=== PATIENT | female | born 1990 | race Caucasian/White ===

== ENCOUNTER 2023-04-14 08:46 | Outpatient (OUT) | payer BC, SELFPAY ==
[2023-04-14] MEDS: FLU VACC QS 23-24(6MS UP)CEL/PF 60 MCG/0.5 ML SYRINGE IM (13:28)
== END 2023-04-14 08:47 | disposition home or self-care (01) ==
PROVIDERS: PCP Family Medicine
DX: Z23 Encounter for immunization (principal)
CPT/HCPCS: 90674; G0008

== ENCOUNTER 2023-08-31 06:39 | Outpatient (OUT) | payer BC, SELFPAY ==
--- OUTSIDE RECORDS SUMMARY | 2023-08-31 06:42 | XMS_ITS | CCD ---
Author Name Unknown Address Formerly [facility] [address] [place] [id number] Organization [facility] Care Team Providers Care Rod Buster Name Role Phone KALEE ., DR PANCHITO Wong Admitting Unavailable KALEE ., DR PANCHITO Wong Attending Unavailable KALEE ., DR PANCHITO Wong Consulting Unavailable Randee Castano MD Primary Care Provider [phone] RANDEE CASTANO Attending Unavailable Allergies Allergy Classification Reported Allergen(s) Allergy Type Date of Onset Reaction(s) Facility (1 source) diazePAM Drug Allergy 1 [facility] Repository (3 sources) Diazepam Propensity to adverse reactions 4 [facility] (3 sources) Penicillins Propensity to adverse reactions 4 [facility] (3 sources) Amoxicillin-Pot Clavulanate Propensity to adverse reactions 4 [facility] Medications Current Medications Medication Drug Class(es) Dates Sig (Normalized) Sig (Original) 1 ml medroxyPROGESTERone acetate 150 mg/ml prefilled syringe (3 sources) Progestin Start: 08-07-19 medroxyPROGESTERone (Depo-Provera) 150 MG/ML suspension prefilled syringe injection syringe Indications: Irregular menstrual bleeding Inject 1 mL (150 mg) into the shoulder, thigh, or buttocks 1 (one) time for 1 dose 1 mL 0 08/07/2023 Active QUEtiapine 100 mg oral tablet (3 sources) Atypical Antipsychotic QUEtiapine (SEROquel ) 100 MG tablet Take 100 mg by mouth if needed 0 Active sertraline 50 mg oral tablet (3 sources) Serotonin Reuptake Inhibitor sertraline (Zoloft) 50 MG tablet Take 75 mg by mouth in the morning. 0 Active take 1 tablet by mouth in the mo rning sertraline (Zoloft) 50 MG tablet Take 50 mg by mouth in the morning. 0 Active Problems Problem Classification Problem Date Documented Da te Episodic/Chronic Disorders usually diagnosed in infancy, childhood, or adolescence (3 sources) Autism spectrum disorder; Translations: [Autistic disorder] Onset: 08-28-2023 08-28-2023 Chronic Results Test Name Value Interpretation Reference Range Facil ity Immunization Recordson 04-25 Immunization Records [id number]#[id number] Normal [facility] Lab Reportson 10-03-2022 Lab Reports [id number] #[id number]:127 Normal [facility] CBC AUTO DIFFon 10-02-2022 BASO # 0.1 103/ul Normal 0.0-0.1 [facility] Comment on above: Performed By: #### C BC #### [facility] [address] [place] [address] Dr. Liz Jackman Basophils/100 WBC (Bld) 1.1 % Normal 0.2-2.0 [facility] Comment on above: Performed By: #### C BC #### [facility] [address] [address] [address] Liz Jackman EO # 0.1 103/ul Normal 0.0-0.7 [facility] Comment on above: Performed By: #### C BC #### [facility] [address] [address] [address] Liz Jackman Eosinophils/100 WBC (Bld) 1.6 % Normal 0.9-7.0 [facility] Comment on above: Performed By: #### C BC #### [facility] [address] [address] [address] Liz Jackman Erythrocyte distribution width (RBC) [Ratio] 13.3 % Normal 11.0-15.0 [facility] Comment on above: Performed By: #### C BC #### [facility] [address] [address] [address] Liz Jackman Hematocrit (Bld) [Volume fraction] 41.0 % Normal 36.0-48.0 [facility] Comment on above: Performed By: #### C BC #### [facility] [address] [place] [address] Dr. Liz Jackman Hemoglobin (Bld) [Mass/Vol] 13.2 g/dL Normal 12.0-16.0 [facility] Comment on above: Performed By: #### C BC #### [facility] [address] [place] [address] Dr. Liz Jackman IG # 0.02 10e3/ul Normal 0.00-0.03 [facility] Comment on above: Performed By: #### C BC #### [facility] [address] [place] [address] Dr. Liz Jackman IG % 0.2 % Normal 0.0-0.5 [facility] Comment on above: Performed By: #### C BC #### [facility] [address] [place] [address] Dr. Liz Jackman LYMPH # 3.8 103/ul Normal 1.2-3.8 [facility] Comment on above: Performed By: #### C BC #### [facility] [address] [place] [address] Dr. Liz Jackman Lymphocytes/100 WBC (Bld) 47.0 % Normal 20.5-60.0 [facility] Comment on above: Performed By: #### C BC #### [facility] [address] [place] [address] Dr. Liz Jackman MANUAL DIFF REQ NO Normal [facility] Comment on above: Performed By: #### C BC #### [facility] [address] [place] [address] Dr. Liz Jackman MCH (RBC) [Entitic mass] 27.3 pg Normal 26.7-34.0 [facility] Comment on above: Performed By: #### C BC #### [facility] [address] [place] [address] Dr. Liz Jackman MCHC (RBC) [Mass/Vol] 32.2 g/dL Normal 29.9-35.2 [facility] Comment on above: Performed By: #### C BC #### [facility] [address] [address] [address] Liz Jackman MCV (RBC) [Entitic vol] 84.9 fL Normal 81.0-99.0 [facility] Comment on above: Performed By: #### C BC #### [facility] [address] [address] [address] Liz Jackman MONO # 0.5 103/ul Normal 0.3-0.8 [facility] Comment on above: Performed By: #### C BC #### [facility] [address] [place] [address] Dr. Liz Jackamn Monocytes/100 WBC (Bld) 6.6 % Normal 1.7-12.0 [facility] Comment on above: Performed By: #### C BC #### [facility] [address] [place] [address] Dr. Liz Jackman NEUT # 3.5 103/ul Normal 1.4-6.5 [facility] Comment on above: Performed By: #### C BC #### [facility] [address] [place] [address] Dr. Liz Jackman Neutrophils/100 WBC (Bld) 43.5 % Normal 43.0-75.0 [facility] Comment on above: Performed By: #### C BC #### [facility] [address] [place] [address] Dr. Liz Jackman Platelet mean volume (Bld) [Entitic vol] 10.8 fL Normal 9.5-13.5 [facility] Comment on above: Performed By: #### C BC #### [facility] [address] [place] [address] Dr. Liz Jackman PLT 276 103/ul Normal 150-450 [facility] Comment on above: Performed By: #### C BC #### [facility] [address] [place] [address] Dr. Liz Jackman RBC 4.83 106/ul Normal 4.20-5.40 [facility] Comment on above: Performed By: #### C BC #### [facility] [address] [place] [address] Dr. Liz Jackman WBC 8.1 103/ul Normal 4.0-11.0 [facility] Comment on above: Performed By: #### C BC #### [facility] [address] [address] [address] Liz Jackman GLYCOHEMOGLOBIN A1Con 2022 ADA RECOMMENDATION SEE BELOW Normal [facility] Comment on above: Result Comment: ADA RECOMMENDED LIMIT 4.0 - 6.0 ADA THERAPEUTIC TARGET < 7.0 ACTION SUGGESTED > 7.0 Performed By: #### A 1C #### [facility] [address] [place] [address] Dr. Liz Jackman Glucose [Mass/Vol] 97 mg/dL Normal [facility] Comment on above: Performed By: #### A 1C #### [facility] [address] [place] [address] Dr. Liz Jackman HbA1c (Bld) [Mass fraction] 5.0 % Normal 4.5-6.2 [facility] Comment on above: Performed By: #### A 1C #### [facility] [address] [place] [address] Dr. Liz Jackman LIPID PROFILEon 10-02-2022 CHOL-HDL RATIO NORM SEE BELOW Normal [facility] Comment on above: Result Comment: 3.3 - 4.4 LOW RISK 4.4 - 7.1 AVERAGE RISK 7.1 - 11.0 MODERATE RISK >11.0 HIGH RISK Performed By: #### C MP, TSH, LIPID #### [facility] [address] [place] [address] Dr. Liz Jackman Cholesterol [Mass/Vol] 173 mg/dL Normal <=200 [facility] Comment on above: Performed By: #### C MP, TSH, LIPID #### [facility] [address] [place] [address] Dr. Liz Jackman Cholesterol in HDL [Mass/Vol] 43 mg/dL Normal 40-60 [facility] Comment on above: Performed By: #### C MP, TSH, LIPID #### [facility] [address] [place] [address] Dr. Liz Jackman Cholesterol in LDL [Mass/Vol] 96.2 mg/dL Normal [facility] Comment on above: Performed By: #### C MP, TSH, LIPID #### [facility] [address] [address] [address] Liz Jackman Cholesterol.total/Cho lesterol in HDL [Mass ratio] 4.0 {ratio} Normal [facility] Comment on above: Performed By: #### C MP, TSH, LIPID #### [facility] [address] [address] [address] Liz Jackman HDL NORMAL > or = 60 mg/dl - LOW CARDIOVASCULAR RISK <40 mg/dl - HIGH CARDIOVASCULAR RISK Normal [facility] Comment on above: Performed By: #### C MP, TSH, LIPID #### [facility] [address] [place] [address] Dr. Liz Jackman LDL CALC NORMAL SEE BELOW Normal [facility] Comment on above: Result Comment: <100 mg/dl OPTIMAL 100 - 129 mg/dl NEAR OR ABOVE OPTIMAL 130 - 159 mg/dl BORDERLINE HIGH 160 - 189 mg/dl HIGH >190 mg/dl VERY HIGH Performed By: #### C MP, TSH, LIPID #### [facility] [address] [address] [address] Liz Jackman Triglyceride [Mass/Vol] 169 mg/dL Critically high <=150 [facility] Comment on above: Performed By: #### C MP, TSH, LIPID #### [facility] [address] [address] [address] Liz Jackman VLDL CALC 33.8 mg/dL Normal [facility] Comment on above: Performed By: #### C MP, TSH, LIPID #### [facility] [address] [place] [address] Dr. Liz Jackman PROF 14(COMP METB)on 023 Albumin [Mass/Vol] 3.7 g/dL Normal 3.4-5.0 [facility] Comment on above: Performed By: #### C MP, TSH, LIPID #### [facility] [address] [address] [address] Liz Jackman Albumin/Globulin [Mass ratio] 1.1 {ratio} Normal [facility] Comment on above: Performed By: #### C MP, TSH, LIPID #### [facility] [address] [place] [address] Dr. Liz Jackman ALP [Catalytic activity/Vol] 123 U/L Critically high 46-116 [facility] Comment on above: Performed By: #### C MP, TSH, LIPID #### [facility] [address] [place] [address] Dr. Liz Jackman ALT [Catalytic activity/Vol] 22 U/L Normal 14-59 [facility] Comment on above: Performed By: #### C MP, TSH, LIPID #### [facility] [address] [place] [address] Dr. Liz Jackman Anion gap [Moles/Vol] 15.5 mmol/L Normal [facility] Comment on above: Performed By: #### C MP, TSH, LIPID #### [facility] [address] [place] [address] Dr. Liz Jackman AST [Catalytic activity/Vol] 18 U/L Normal 15-37 [facility] Comment on above: Performed By: #### C MP, TSH, LIPID #### [facility] [address] [place] [address] Dr. Liz Jackman Bilirubin [Mass/Vol] 0.4 mg/dL Normal 0.2-1.0 [facility] Comment on above: Performed By: #### C MP, TSH, LIPID #### [facility] [address] [place] [address] Dr. Liz Jackman Calcium [Mass/Vol] 9.0 mg/dL Normal 8.5-10.1 [facility] Comment on above: Performed By: #### C MP, TSH, LIPID #### [facility] [address] [place] [address] Dr. Liz Jackman Chloride [Moles/Vol] 104 mmol/L Normal 98-107 [facility] Comment on above: Performed By: #### C MP, TSH, LIPID #### [facility] [address] [place] [address] Dr. Liz Jackman CO2 [Moles/Vol] 23.8 mmol/L Normal 21.0-32.0 [facility] Comment on above: Performed By: #### C MP, TSH, LIPID #### [facility] [address] [address] [address] Liz Jackman Creatinine [Mass/Vol] 0.74 mg/dL Normal 0.55-1.02 [facility] Comment on above: Performed By: #### C MP, TSH, LIPID #### [facility] [address] [address] [address] Liz Jackman EGFR-AF NAURUAN >60 Normal >=60 [facility] Comment on above: Performed By: #### C MP, TSH, LIPID #### [facility] [address] [address] [address] Liz Jackman EGFR-NON AF NAURUAN >60 Normal >=60 [facility] Comment on above: Performed By: #### C MP, TSH, LIPID #### [facility] [address] [address] [address] Liz Jackman Globulin (S) [Mass/Vol] 3.4 g/dL Normal [facility] Comment on above: Performed By: #### C MP, TSH, LIPID #### [facility] [address] [address] [address] Liz Jackman Glucose [Mass/Vol] 92 mg/dL Normal 74-106 [facility] Comment on above: Performed By: #### C MP, TSH, LIPID #### [facility] [address] [address] [address] Liz Jackman Potassium [Moles/Vol] 3.3 mmol/L Critically low 3.5-5.1 [facility] Comment on above: Performed By: #### C MP, TSH, LIPID #### [facility] [address] [address] [address] Liz Jackman Protein [Mass/Vol] 7.1 g/dL Normal 6.4-8.2 [facility] Comment on above: Performed By: #### C MP, TSH, LIPID #### [facility] [address] [address] [address] Liz Jackman Sodium [Moles/Vol] 140 mmol/L Normal 136-145 [facility] Comment on above: Performed By: #### C MP, TSH, LIPID #### [facility] [address] [place] [address] Dr. Liz Jackman Urea nitrogen [Mass/Vol] 7.0 mg/dL Normal 7.0-18.0 [facility] Comment on above: Performed By: #### C MP, TSH, LIPID #### [facility] [address] [address] [address] Liz Jackman Urea nitrogen/Creatinine [Mass ratio] 9.5 mg/mg Normal [facility] Comment on above: Performed By: #### C MP, TSH, LIPID #### [facility] [address] [place] [address] Dr. Liz Jackman TSHon 10-02-2022 TSH 1.767 uIU/mL Normal 0.358-3.740 [facility] Comment on above: Performed By: #### C MP, TSH, LIPID #### [facility] [address] [place] [address] Dr. Liz Jackman Vital Signs Date Time Vital Sign Value Performing Clinician Marlon [email or web address] 08-28-2023 13:52-0500 Body height 165.1 cm Randee Castano MD Work Phone: [facility] 08-28-2023 13:52-0500 Body mass index (BMI) [Ratio] 42.1 kg/m2 Randee Castano MD Work Phone: [facility] 08-28-2023 13:52-0500 Body temperature 97.11 [degF] Randee Castano MD Work Phone: [facility] 08-28-2023 13:52-0500 Body weight 114.76 kg Randee Castano MD Work Phone: [facility] 08-28-2023 13:52-0500 Diastolic blood pressure 70 mm[Hg] Randee Castano MD Work Phone: [facility] 08-28-2023 13:52-0500 Heart rate 105 /min Randee Castano MD Work Phone: [facility] 08-28-2023 13:52-0500 SaO2% (BldA) [Mass fraction] 98 % Randee Castano MD Work Phone: [facility] 08-28-2023 13:52-0500 Systolic blood pressure 122 mm[Hg] Randee Castano MD Work Phone: [facility] Encounters Encounter Date Encounter Type Care Provider Facility Start: 08-28-2023 End: 08-28-2023 ambulatory RANDEE CASTANO Not Available Start: 08-28-2023 End: 08-28-2023 Periodic preventive med est patient 18-39 yrs Randee Castano MD Work Phone: [facility] Comment on above: Annual physical exam (Primary Dx) Start: 08-28-2023 Bamboo flowsheet Randee Castano MD Work Phone: [facility] Start: 08-28-2023 Bamboo flowsheet Randee Castano MD Work Phone: [facility] Start: 08-28-2023 End: 08-28-2023 Patient encounter procedure Randee Castano MD Work Phone: [facility] Work Phone: Start: 10-07-2022 Encounter for genera l adult medical examination without abnormal findings DR PANCHITO GRANDA . [facility] Start: 10-02-2022 End: 10-03-[address] PANCHITO GRANDA . Facility:[facility] Start: 10-02-2022 End: 10-03-2022 Encounter for general adult medical examination without abnormal findings DR PANCHITO GRANDA . Facility:[facility] Start: 09-19-2022 ambulatory Facility:[facility] Plan of Treatment Date Care Activity Detail Author Start: 08-28-2023 End: 08-28-2023 Patient encounter procedure 08/28/2023 2:15 PM EST Office Visit [facility] [address] [place] [id number] Randee Castano MD [address] [place] [address] Arrived [facility] Comment on above: Arrived Start: 03-16-2023 Influenza vaccination Influenza Vacc ine (#1) [facility] Start: 2021 Screening for malign ant neoplasm of cervix [facility] Start: 02-20-2012 Screening for malign ant neoplasm of cervix Pap Smear [facility] Immunizations Immunization Date Immunization Notes Care Provider Fa cility 04-19-2022 influenza virus vacc ine, unspecified formulation Randee Castano MD Work Phone: [facility] Payers Date Payer Category Payer Unknown [id number] 1990 Unknown [id number] 1990 Unknown [id number] Social History Date Type Detail Facility Start: 08-09-2023 End: 08-28-2023 Tobacco smoking status NHIS Never smoked tobacco [facility] Start: 08-09-2023 End: 08-28-2023 History of Social function [facility] Start: 08-09-2023 End: 08-28-2023 Tobacco use panel [facility] Start: 1990 Sex Assigned At Not on file [facility] Start: 08-28-2023 Tobacco use and exposure Smokeless t obacco non-user [facility] History of Present illness Narrative 08-28-2023 Randee Castano MD - 08/28/2023 2:31 PM Keena Castano MD - 08/28/2023 2:15 PM EST Note Date & Type Note Facility 08-28-2023 History of Presen t illness Narrative Associated Problem(s): Annual physical exam Due for labs. Discussed proper diet and regular aerobic exercise. Need aerobic exercise 5-6 days a week for 30 minutes at a time. Smaller portions and limit total calories. Colonoscopy after age 45. Tetanus every 10 years. Advised not to smoke. Discussed daily Aspirin therapy. Subjective Patient ID: Frederick Dickson is a 33 y.o. female who presents for Annual Exam (wellness). Presents for annual PE. Patient doing well today. History of Autism and nonverbal. Patient has receptive language and able to understand. No behavior problems and gets along well with others. Goes to workshop during the week. Mild anxiety but controlled with medication. No aggression or outbursts. Weight up 14 pounds in past year. Not active and no regular exercise or activity. Not watching diet or trying to eat healthy. Mom not limiting portions or snacking. Due for labs. Review of Systems Respiratory: Negative for cough, shortness of breath and wheezing. Cardiovascular: Negative for chest pain and palpitations. Gastrointestinal: Negative for abdominal pain, diarrhea, nausea and vomiting. Genitourinary: Negative for dysuria. Objective Physical Exam Constitutional: General: She is not in acute distress. Appearance: Normal appearance. HENT: Head: Normocephalic. Right Ear: Tympanic membrane normal. Left Ear: Tympanic membrane normal. Eyes: Extraocular Movements: Extraocular movements intact. Pupils: Pupils are equal, round, and reactive to light. Cardiovascular: Rate and Rhythm: Normal rate and regular rhythm. Heart sounds: No murmur heard. No friction rub. No gallop. Pulmonary: Effort: Pulmonary effort is normal. Breath sounds: Normal breath sounds. No wheezing, rhonchi or rales. Abdominal: General: Bowel sounds are normal. There is no distension. Palpations: Abdomen is soft. Tenderness: There is no abdominal tenderness. There is no guarding or rebound. Musculoskeletal: General: No swelling or tenderness. Cervical back: Neck supple. Right lower leg: No edema. Left lower leg: No edema. Skin: Findings: No erythema or rash. Neurological: General: No focal deficit present. Mental Status: She is alert and oriented to person, place, and time. Cranial Nerves: No cranial nerve deficit. Motor: No weakness. Gait: Gait normal. Assessment/Plan Problem List Items Addressed This Visit Annual physical exam - Primary Due for labs. Discussed proper diet and regular aerobic exercise. Need aerobic exercise 5-6 days a week for 30 minutes at a time. Smaller portions and limit total calories. Colonoscopy after age 45. Tetanus every 10 years. Advised not to smoke. Discussed daily Aspirin therapy. documented in this encounter [facility] Evaluation note Note Date & Type Note Facility Evaluation note Diagnosis Annual physical exam- Primary Routine general medical examination at a health care facility documented in this encounter [facility] Summary Purpose Family History No Family History Records FoundNo Family History Records FoundNo Family History Records Found Advance Directives No Advanced Directives Records FoundNo Advanced Directives Records FoundNo Advanced Directives Records Found Additional Source Comments INFORMATION SOURCE (unrecogn ized section and content) DATE CREATED AUTHOR 11/27/2022 [facility] DATE CREATED AUTHOR AUTHOR'S ORGANIZ ATION 04/26/2023 [facility] DATE CREATED AUTHOR AUTHOR'S ORGANIZ ATION 08/30/2023 [facility] [employer] Care Teams (unrecognized sec tion and content) Rod Buster Relationship Specialty Start Date End Date Randee Castano MD [address] [place] [id number] PCP - General Family Medicine 08/06/23 Rod Buster Relationship Specialty Start Date End Date Randee Castano MD [address] [place] [address] PCP - General Family Medicine 08/06/23 Reason for Visit (unrecogniz ed section and content) Reason Comments Annual Exam wellness FOR RECORDS PERTAINING TO PATIENTS WHO ARE OR HAVE BEEN ENROLLED IN A CHEMICAL DEPENDENCY/SUBSTANCEABUSE PROGRAM, SOME INFORMATION MAY BE OMITTED. This clinical summary was aggregated from multiple sources. Caution should be exercised in using it in the provision of clinical care. This summary normalizes information from multiple sources, and as a consequence, information in this document may materially change the coding, format and clinical context of patient data. In addition, data may be omitted in some cases. CLINICAL DECISIONS SHOULD BE BASED ON THE PRIMARY CLINICAL RECORDS. [employer] provides no warranty or guarantee of the accuracy or completeness of information in this document.
[2023-08-31 06:51] LABS: Basophils Absolute Auto 0.1 10^3/uL (0.0-0.1); Eosinophils Absolute Auto 0.1 10^3/uL (0.0-0.7); Eosinophils Percent Auto 1.4 % (0.9-7.0); Hematocrit 42.9 % (36.0-48.0); Hemoglobin 13.5 g/dL (12.0-16.0); Immature Granulocytes Abs Auto 0.02 10^3/uL (0.00-0.03); Immature Granulocytes Pct Auto 0.3 % (0.0-0.5); Lymphocytes Absolute Auto 3.3 10^3/uL (1.2-3.8); Lymphocytes Percent Auto 45.7 % (20.5-60.0); Mean Corpuscular HGB Conc 31.5 g/dL (29.9-35.2); Mean Corpuscular Hemoglobin 27.4 pg (26.7-34.0); Mean Corpuscular Volume 87.2 fL (81.0-99.0); Monocytes Absolute Auto 0.5 10^3/uL (0.3-0.8); Monocytes Percent Auto 7.1 % (1.7-12.0); Neutrophils Absolute Auto 3.2 10^3/uL (1.4-6.5); Neutrophils Percent Auto 44.5 % (43.0-75.0); Platelet Count 301 10^3/uL (150-450); Red Blood Count 4.92 10^6/uL (4.20-5.40); Red Cell Distribution Width 12.7 % (11.0-15.0); White Blood Count 7.2 10^3/uL (4.0-11.0)
[2023-08-31 07:03] LABS: Estimated Average Glucose 100 mg/dL; Glycohemoglobin A1C 5.1 % (4.5-6.2)
[2023-08-31 07:47] LABS: Alanine Aminotransferase 22 U/L (14-59); Albumin Globulin Ratio 0.9; Albumin Level 3.5 g/dL (3.4-5.0); Alkaline Phosphatase 107 U/L (46-116); Anion Gap 13.4; Aspartate Amino Transferase 13 U/L (15-37); BUN Creatinine Ratio 17.9; Bilirubin Total 0.3 mg/dL (0.2-1.0); Calcium 8.8 mg/dL (8.5-10.1); Carbon Dioxide 27.4 mmol/L (21.0-32.0); Chloride 106 mmol/L (98-107); Chol HDL Ratio 3.5; Cholesterol 194 mg/dL (<=200); Estimated GFR (African America >60 (>=60); Estimated GFR (Non-African Ame >60 (>=60); Globulin 3.7 g/dL; Glucose 88 mg/dL (74-106); HDL Cholesterol 56 mg/dL (40-60); LDL Cholesterol Calculated 125.8 mg/dL; Potassium 3.8 mmol/L (3.5-5.1); Sodium 143 mmol/L (136-145); Thyroid Stimulating Hormone 1.455 uIU/mL (0.358-3.740); Total Protein 7.2 g/dL (6.4-8.2); Triglycerides 61 mg/dL (<=150); VLDL CHOLESTEROL 12.2 mg/dL
== END 2023-08-31 06:40 | disposition home or self-care (01) ==
LOC: LAB 06:39
PROVIDERS: PCP Family Medicine; Visit Provider Family Medicine
DX: Z00.00 Encounter for general adult medical examination without abnormal findings (principal)
CPT/HCPCS: 36415; 80053; 80061; 83036; 84443; 85025

== ENCOUNTER 2024-12-17 07:59 | Outpatient (OUT) | payer BC, SELFPAY ==
[2024-12-17 08:15] LABS: Basophils Absolute Auto 0.1 10^3/uL (0.0-0.1); Basophils Percent Auto 1.1 % (0.2-2.0); Eosinophils Absolute Auto 0.1 10^3/uL (0.0-0.7); Eosinophils Percent Auto 1.5 % (0.9-7.0); Hematocrit 41.2 % (36.0-48.0); Hemoglobin 13.5 g/dL (12.0-16.0); Immature Granulocytes Abs Auto 0.01 10^3/uL (0.00-0.03); Immature Granulocytes Pct Auto 0.1 % (0.0-0.5); Lymphocytes Absolute Auto 2.9 10^3/uL (1.2-3.8); Lymphocytes Percent Auto 39.9 % (20.5-60.0); Mean Corpuscular HGB Conc 32.8 g/dL (29.9-35.2); Mean Corpuscular Volume 82.4 fL (81.0-99.0); Mean Platelet Volume 10.1 fL (9.5-13.5); Monocytes Absolute Auto 0.5 10^3/uL (0.3-0.8); Monocytes Percent Auto 6.7 % (1.7-12.0); Neutrophils Absolute Auto 3.7 10^3/uL (1.4-6.5); Neutrophils Percent Auto 50.7 % (43.0-75.0); Platelet Count 346 10^3/uL (150-450); Red Cell Distribution Width 13.8 % (11.0-15.0); White Blood Count 7.3 10^3/uL (4.0-11.0)
--- OUTSIDE RECORDS SUMMARY | 2024-12-17 08:19 | XMS_ITS | CCD ---
Author Organization [facility] Care Team Providers Care Bend Up Name Role Phone KALEE ., DR PANCHITO Wong Admitting Unavailable KALEE ., DR PANCHITO Wong Attending Unavailable KALEE ., DR PANCHITO Wong Consulting Unavailable Yuri Castano MD Primary Care Provider Yuri Castano MD Unavailable YURI CASTANO Attending Unavailable Allergies Allergy Classification Reported Allergen(s) Allergy Type Date of Onset Reaction(s) Facility (1 source) diazePAM Drug Allergy 1 [facility] Repository (6 sources) Diazepam Propensity to adverse reactions 4 [facility] Healthcare (6 sources) Penicillins Propensity to adverse reactions 4 [facility] (6 sources) Amoxicillin-Pot Clavulanate Propensity to adverse reactions 4 [facility] Medications Current Medications Medication Drug Class(es) Dates Sig (Normalized) Sig (Original) 1 ml medroxyPROGESTERone acetate 150 mg/ml prefilled syringe (6 sources) Progestin Start: 5 medroxyPROGESTERone (Depo-Provera) 150 MG/ML suspension prefilled syringe injection syringe Indications: Irregular menstrual bleeding INJECT 1 ML INTO THE SHOULDER, THIGH, OR BUTTOCKS 1 TIME FOR 1 DOSE 1 mL 3 10/02/2024 Active Start: 08-07-2023 medroxyPROGEST ERone (Depo-Provera) 150 MG/ML suspension prefilled syringe injection syringe Indications: Irregular menstrual bleeding Inject 1 mL (150 mg) into the shoulder, thigh, or buttocks 1 (one) time for 1 dose 1 mL 0 08/07/2023 Active QUEtiapine 100 mg oral tablet (6 sources) Atypical Antipsychotic QUEtiapin e (SEROquel) 100 MG tablet Take 100 mg by mouth if needed Active sertraline 50 mg oral tablet (6 sources) Serotonin Reuptake Inhibitor Start: 12-09-2024 sertraline (Zoloft) 50 MG tablet Indications: Autistic spectrum disorder (CMS/HCC) TAKE 1 AND 1/2 TABLET (75 MG) BY MOUTH IN THE MORNING 135 tablet 1 12/09/2024 Active sertraline (Zolo ft) 50 MG tablet Take 75 mg by mouth in the morning. 0 Active take 1 tablet by mouth in the mo rning sertraline (Zoloft) 50 MG tablet Take 50 mg by mouth in the morning. 0 Active Problems Problem Classification Problem Date Documented Da te Episodic/Chronic Disorders usually diagnosed in infancy, childhood, or adolescence (8 sources) Autism spectrum disorder; Translations: [Autistic disorder] Onset: 08-28-2023 08-28-2023 Chronic Other nutritional; endocrine; and metabolic disorders (4 sources) Severe obesity; Translations: [Class 3 severe obesity due to excess calories without serious comorbidity with body mass index (BMI) of 40.0 to 44.9 in adult] Onset: 12-11-2024 12-11-2024 Chronic Results Test Name Value Interpretation Reference Range Facil ity Immunization Recordson 04-25 Immunization Records [id number] 0#[id number] Normal [facility] Lab Reportson 10-03-2022 Lab Reports [id number] #[id number]:127 Normal [facility] CBC AUTO DIFFon 10-02-2022 BASO # 0.1 103/ul Normal 0.0-0.1 [facility] Comment on above: Performed By: #### C BC #### [facility] [address] [place] [address] Dr. Liz aJckman Basophils/100 WBC (Bld) 1.1 % Normal 0.2-2.0 [facility] Comment on above: Performed By: #### C BC #### [facility] [address] [place] [address] Dr. Liz Jackman EO # 0.1 103/ul Normal 0.0-0.7 [facility] Comment on above: Performed By: #### C BC #### [facility] [address] [place] [address] Dr. Liz Jackman Eosinophils/100 WBC (Bld) 1.6 % Normal 0.9-7.0 [facility] Comment on above: Performed By: #### C BC #### [facility] [address] [place] [address] Dr. Liz Jackman Erythrocyte distribution width (RBC) [Ratio] 13.3 % Normal 11.0-15.0 [facility] Comment on above: Performed By: #### C BC #### [facility] [address] [place] [address] Dr. Liz Jackman Hematocrit (Bld) [Volume fraction] 41.0 % Normal 36.0-48.0 [facility] Comment on above: Performed By: #### C BC #### [facility] [address] [place] [address] Dr. Liz Jackman Hemoglobin (Bld) [Mass/Vol] 13.2 g/dL Normal 12.0-16.0 [facility] Comment on above: Performed By: #### C BC #### [facility] [address] [place] [address] Dr. Liz Jackman IG # 0.02 10e3/ul Normal 0.00-0.03 [facility] Comment on above: Performed By: #### C BC #### [facility] [address] [place] [address] Dr. Liz Jackman IG % 0.2 % Normal 0.0-0.5 [facility] Comment on above: Performed By: #### C BC #### [facility] [address] [place] [address] Dr. Liz Jackman LYMPH # 3.8 103/ul Normal 1.2-3.8 [facility] Comment on above: Performed By: #### C BC #### [facility] [address] [place] [address] Dr. Liz Jackman Lymphocytes/100 WBC (Bld) 47.0 % Normal 20.5-60.0 [facility] Comment on above: Performed By: #### C BC #### [facility] [address] [place] [address] Dr. Liz Jackman MANUAL DIFF REQ NO Normal [facility] Comment on above: Performed By: #### C BC #### [facility] [address] [place] [address] Dr. Liz Jackman MCH (RBC) [Entitic mass] 27.3 pg Normal 26.7-34.0 [facility] Comment on above: Performed By: #### C BC #### [facility] [address] [place] [address] Dr. Liz Jackman MCHC (RBC) [Mass/Vol] 32.2 g/dL Normal 29.9-35.2 [facility] Comment on above: Performed By: #### C BC #### [facility] [address] [place] [address] Dr. Liz Jackman MCV (RBC) [Entitic vol] 84.9 fL Normal 81.0-99.0 [facility] Comment on above: Performed By: #### C BC #### [facility] [address] [place] [address] Dr. Liz Jackman MONO # 0.5 103/ul Normal 0.3-0.8 [facility] Comment on above: Performed By: #### C BC #### [facility] [address] [place] [address] Dr. Liz Jackman Monocytes/100 WBC (Bld) 6.6 % Normal 1.7-12.0 [facility] Comment on above: Performed By: #### C BC #### [facility] [address] [place] [address] Dr. Liz Jackman NEUT # 3.5 103/ul Normal 1.4-6.5 [facility] Comment on above: Performed By: #### C BC #### [facility] [address] [place] [address] Dr. Liz Jackman Neutrophils/100 WBC (Bld) 43.5 % Normal 43.0-75.0 [facility] Comment on above: Performed By: #### C BC #### [facility] [address] [place] [address] Dr. Liz Jackman Platelet mean volume (Bld) [Entitic vol] 10.8 fL Normal 9.5-13.5 [facility] Comment on above: Performed By: #### C BC #### [facility] [address] [place] [address] Dr. Liz Jackman PLT 276 103/ul Normal 150-450 [facility] Comment on above: Performed By: #### C BC #### [facility] [address] [place] [address] Dr. Liz Jackman RBC 4.83 106/ul Normal 4.20-5.40 [facility] Comment on above: Performed By: #### C BC #### [facility] [address] [place] [address] Dr. Liz Jackman WBC 8.1 103/ul Normal 4.0-11.0 [facility] Comment on above: Performed By: #### C BC #### [facility] [address] [place] [address] Dr. Liz Jackman GLYCOHEMOGLOBIN A1Con 2022 ADA RECOMMENDATION SEE BELOW Normal [facility] Comment on above: Result Comment: ADA RECOMMENDED LIMIT 4.0 - 6.0 ADA THERAPEUTIC TARGET < 7.0 ACTION SUGGESTED > 7.0 Performed By: #### A 1C #### [facility] [address] [place] [address] Dr. Liz Jackman Glucose [Mass/Vol] 97 mg/dL Normal [facility] Comment on above: Performed By: #### A 1C #### [facility] [address] [place] [address] Dr. Liz Jackman HbA1c (Bld) [Mass fraction] 5.0 % Normal 4.5-6.2 [facility] Comment on above: Performed By: #### A 1C #### [facility] [address] [place] [address] Dr. Liz Jackman LIPID PROFILEon 10-02-2022 CHOL-HDL RATIO NORM SEE BELOW Normal [facility] Comment on above: Result Comment: 3.3 - 4.4 LOW RISK 4.4 - 7.1 AVERAGE RISK 7.1 - 11.0 MODERATE RISK >11.0 HIGH RISK Performed By: #### C MP, TSH, LIPID #### [facility] [address] [address] [address] Liz Jackman Cholesterol [Mass/Vol] 173 mg/dL Normal <=200 [facility] Comment on above: Performed By: #### C MP, TSH, LIPID #### [facility] [address] [address] [address] Liz Jackman Cholesterol in HDL [Mass/Vol] 43 mg/dL Normal 40-60 [facility] Comment on above: Performed By: #### C MP, TSH, LIPID #### [facility] [address] [address] [address] Liz Jackman Cholesterol in LDL [Mass/Vol] 96.2 mg/dL Normal [facility] Comment on above: Performed By: #### C MP, TSH, LIPID #### [facility] [address] [address] [address] Liz Jackman Cholesterol.total/Cho lesterol in HDL [Mass ratio] 4.0 {ratio} Normal [facility] Comment on above: Performed By: #### C MP, TSH, LIPID #### [facility] [address] [address] [address] Liz Jackman HDL NORMAL > or = 60 mg/dl - LOW CARDIOVASCULAR RISK <40 mg/dl - HIGH CARDIOVASCULAR RISK Normal [facility] Comment on above: Performed By: #### C MP, TSH, LIPID #### [facility] [address] [address] [address] Liz Jackman LDL CALC NORMAL SEE BELOW Normal [facility] Comment on above: Result Comment: <100 mg/dl OPTIMAL 100 - 129 mg/dl NEAR OR ABOVE OPTIMAL 130 - 159 mg/dl BORDERLINE HIGH 160 - 189 mg/dl HIGH >190 mg/dl VERY HIGH Performed By: #### C MP, TSH, LIPID #### [facility] [address] [address] [address] Liz Jackman Triglyceride [Mass/Vol] 169 mg/dL Critically high <=150 [facility] Comment on above: Performed By: #### C MP, TSH, LIPID #### [facility] [address] [address] [address] Liz Jackman VLDL CALC 33.8 mg/dL Normal [facility] Comment on above: Performed By: #### C MP, TSH, LIPID #### [facility] [address] [address] [address] Liz Jackman PROF 14(COMP METB)on 023 Albumin [Mass/Vol] 3.7 g/dL Normal 3.4-5.0 [facility] Comment on above: Performed By: #### C MP, TSH, LIPID #### [facility] [address] [address] [address] Liz Jackman Albumin/Globulin [Mass ratio] 1.1 {ratio} Normal [facility] Comment on above: Performed By: #### C MP, TSH, LIPID #### [facility] [address] [place] [address] Dr. Liz Jackman ALP [Catalytic activity/Vol] 123 U/L Critically high 46-116 [facility] Comment on above: Performed By: #### C MP, TSH, LIPID #### [facility] [address] [address] [address] Liz Jackman ALT [Catalytic activity/Vol] 22 U/L Normal 14-59 [facility] Comment on above: Performed By: #### C MP, TSH, LIPID #### [facility] [address] [address] [address] Liz Jackman Anion gap [Moles/Vol] 15.5 mmol/L Normal [facility] Comment on above: Performed By: #### C MP, TSH, LIPID #### [facility] [address] [address] [address] Liz Jackman AST [Catalytic activity/Vol] 18 U/L Normal 15-37 [facility] Comment on above: Performed By: #### C MP, TSH, LIPID #### [facility] [address] [address] [address] Liz Jackman Bilirubin [Mass/Vol] 0.4 mg/dL Normal 0.2-1.0 [facility] Comment on above: Performed By: #### C MP, TSH, LIPID #### [facility] [address] [address] [address] Liz Jackman Calcium [Mass/Vol] 9.0 mg/dL Normal 8.5-10.1 [facility] Comment on above: Performed By: #### C MP, TSH, LIPID #### [facility] [address] [address] [address] Liz Jackman Chloride [Moles/Vol] 104 mmol/L Normal 98-107 [facility] Comment on above: Performed By: #### C MP, TSH, LIPID #### [facility] [address] [address] [address] Liz Jackman CO2 [Moles/Vol] 23.8 mmol/L Normal 21.0-32.0 [facility] Comment on above: Performed By: #### C MP, TSH, LIPID #### [facility] [address] [address] [address] Liz Jackman Creatinine [Mass/Vol] 0.74 mg/dL Normal 0.55-1.02 [facility] Comment on above: Performed By: #### C MP, TSH, LIPID #### [facility] [address] [place] [address] Dr. Liz Jackman EGFR-AF LATVIAN >60 Normal >=60 [facility] Comment on above: Performed By: #### C MP, TSH, LIPID #### [facility] [address] [address] [address] Liz Jackman EGFR-NON AF LATVIAN >60 Normal >=60 [facility] Comment on above: Performed By: #### C MP, TSH, LIPID #### [facility] [address] [address] [address] Liz Jackman Globulin (S) [Mass/Vol] 3.4 g/dL Normal [facility] Comment on above: Performed By: #### C MP, TSH, LIPID #### [facility] [address] [address] [address] Liz Jackman Glucose [Mass/Vol] 92 mg/dL Normal 74-[address] [facility] Comment on above: Performed By: #### C MP, TSH, LIPID #### [facility] [address] [address] [address] Liz Jackman Potassium [Moles/Vol] 3.3 mmol/L Critically low 3.5-5.1 [facility] Comment on above: Performed By: #### C MP, TSH, LIPID #### [facility] [address] [place] [address] Dr. Liz Jackman Protein [Mass/Vol] 7.1 g/dL Normal 6.4-8.[address] [facility] Comment on above: Performed By: #### C MP, TSH, LIPID #### [facility] [address] [place] [address] Dr. Liz Jackman Sodium [Moles/Vol] 140 mmol/L Normal 136-145 [facility] Comment on above: Performed By: #### C MP, TSH, LIPID #### [facility] [address] [place] [address] Dr. Liz Jackman Urea nitrogen [Mass/Vol] 7.0 mg/dL Normal 7.0-18.0 [facility] Comment on above: Performed By: #### C MP, TSH, LIPID #### [facility] [address] [place] [address] Dr. Liz Jackman Urea nitrogen/Creatinine [Mass ratio] 9.5 mg/mg Normal [facility] Comment on above: Performed By: #### C MP, TSH, LIPID #### [facility] [address] [place] [address] Dr. Liz Jackman TSHon 10-02-2022 TSH 1.767 uIU/mL Normal 0.358-3.740 [facility] Comment on above: Performed By: #### C MP, TSH, LIPID #### [facility] [address] [place] [address] Dr. Liz Jackman Vital Signs Date Time Vital Sign Value Performing Clinician Marlon [email or web address] 12-11-2024 14:38-0400 Body height 165.1 cm Yuri Castano MD Work Phone: [facility] 12-11-2024 14:38-0400 Body mass index (BMI) [Ratio] 43.6 kg/m2 Yuri Castano MD Work Phone: [facility] 12-11-2024 14:38-0400 Body temperature 98.4 [degF] Yuri Castano MD Work Phone: [facility] 12-11-2024 14:38-0400 Body weight 118.84 kg Yuri Castano MD Work Phone: [facility] 12-11-2024 14:38-0400 Diastolic blood pressure 74 mm[Hg] Yuri Castano MD Work Phone: [facility] 12-11-2024 14:38-0400 Heart rate 116 /min Yuri Castano MD Work Phone: [facility] 12-11-2024 14:38-0400 Respiratory rate 20 /min Yuri Castano MD Work Phone: [facility] 12-11-2024 14:38-0400 SaO2% (BldA) [Mass fraction] 96 % Yuri Castano MD Work Phone: [facility] 12-11-2024 14:38-0400 Systolic blood pressure 136 mm[Hg] Yuri Castano MD Work Phone: [facility] 08-28-2023 13:52-0500 Body height 165.1 cm Yuri Castano MD Work Phone: [facility] 08-28-2023 13:52-0500 Body mass index (BMI) [Ratio] 42.1 kg/m2 Yuri Castano MD Work Phone: [facility] 08-28-2023 13:52-0500 Body temperature 97.11 [degF] Yuri Castano MD Work Phone: [facility] 08-28-2023 13:52-0500 Body weight 114.76 kg Yuri Castano MD Work Phone: [facility] 02-13-2024 13:52-0500 Diastolic blood pressure 70 mm[Hg] Yuri Castano MD Work Phone: [facility] 08-28-2023 13:52-0500 Heart rate 105 /min Yuri Castano MD Work Phone: [facility] 08-28-2023 13:52-0500 SaO2% (BldA) [Mass fraction] 98 % Yuri Castano MD Work Phone: [facility] 08-28-2023 13:52-0500 Systolic blood pressure 122 mm[Hg] Yuri Castano MD Work Phone: [facility] Healthcare Encounters Encounter Date Encounter Type Care Provider Facility Start: 12-11-2024 End: 12-11-2024 Patient encounter procedure Yuri Castano MD Work Phone: [facility] Work Phone: Start: 12-11-2024 End: 12-11-2024 Periodic preventive med est patient 18-39 yrs Yuri Castano MD Work Phone: [facility] Comment on above: Annual physical exam (Primary Dx); Autistic spectrum disorder (CMS/HCC); Class 3 severe obesity due to excess calories without serious comorbidity with body mass index (BMI) of 40.0 to 44.9 in adult Start: 12-11-2024 End: 12-11-2024 ambulatory YURI CASTANO Not Available Start: 12-11-2024 End: 12-11-2024 Bamboo flowsheet Yuri Castano MD Work Phone: [facility] Start: 12-11-2024 End: 12-11-2024 Bamboo flowsheet Yuri Castano MD Work Phone: [facility] Start: 08-28-2023 End: 08-28-2023 Periodic preventive med est patient 18-39 yrs Yuri Castano MD Work Phone: [facility] Comment on above: Annual physical exam (Primary Dx) Start: 08-28-2023 Bamboo flowsheet Yuri Castano MD Work Phone: [facility] Start: 08-28-2023 Bamboo flowsheet Yuri Castano MD Work Phone: [facility] Start: 08-28-2023 End: 08-28-2023 Patient encounter procedure Yuri Castano MD Work Phone: [facility] Work Phone: Start: 10-07-2022 Encounter for genera l adult medical examination without abnormal findings DR PANCHITO GRANDA . [facility] Start: 10-02-2022 End: 10-03-[address] PANCHTIO GRANDA . Facility: Start: 10-02-2022 End: 10-03-2022 Encounter for general adult medical examination without abnormal findings DR PANCHITO GRANDA . Facility: Start: 09-19-2022 ambulatory Facility:[facility] Plan of Treatment Date Care Activity Detail Author Start: 12-11-2024 End: 12-11-2024 Patient encounter procedure 12/11/2024 2:45 PM EDT Office Visit [facility] [address] [place] [phone] Yuri Castano MD [address] [place] [phone] Arrived [facility] Comment on above: Arrived Start: 12-11-2024 End: 12-11-2025 Basic metabolic 1998 panel - Serum or Plasma Basic metabolic panel Lab Routine Annual physical exam Expected: 12/11/2024 (Approximate), Expires: 12/11/2025 [facility] Comment on above: Expected: 12/11/2024 (Approximate), Expires: 12/11/2025 Start: 12-11-2024 End: 12-11-2025 CBC W Auto Differential panel - Blood CBC and differential Lab Routine Annual physical exam Expected: 12/11/2024 (Approximate), Expires: 12/11/2025 [facility] Comment on above: Expected: 12/11/2024 (Approximate), Expires: 12/11/2025 Start: 12-11-2024 End: 12-11-2025 Hemoglobin A1c/Hemoglobin.total in Blood Hemoglobin A1c Lab Routine Annual physical exam Expected: 12/11/2024 (Approximate), Expires: 12/11/2025 [facility] Work Phone: Comment on above: Expected: 12/11/2024 (Approximate), Expires: 12/11/2025 Start: 12-11-2024 End: 12-11-2025 Hepatic function 2000 panel - Serum or Plasma Hepatic function panel Lab Routine Annual physical exam Expected: 12/11/2024 (Approximate), Expires: 12/11/2025 [facility] Comment on above: Expected: 12/11/2024 (Approximate), Expires: 12/11/2025 Start: 12-11-2024 End: 12-11-2025 Lipid 1996 panel - Serum or Plasma Lipid panel Lab Routine Annual physical exam Expected: 12/11/2024 (Approximate), Expires: 12/11/2025 [facility] Comment on above: Expected: 12/11/2024 (Approximate), Expires: 12/11/2025 Start: 12-11-2024 End: 12-11-2025 Thyrotropin [Units/volume] in Serum or Plasma TSH Lab Routine Annual physical exam Expected: 12/11/2024 (Approximate), Expires: 12/11/2025 [facility] Comment on above: Expected: 12/11/2024 (Approximate), Expires: 12/11/2025 Start: 08-28-2023 End: 08-28-2023 Patient encounter procedure 08/28/2023 2:15 PM EST Office Visit [facility] [address] [place] [phone] Yuri Castano MD [address] [place] [phone] Arrived [facility] Comment on above: Arrived Start: 03-16-2023 Influenza vaccination Influenza Vacc ine (#1) [facility] Start: 2021 Screening for malign ant neoplasm of cervix [facility] Start: 02-20-2012 Screening for malign ant neoplasm of cervix Pap Smear [facility] Immunizations Immunization Date Immunization Notes Care Provider Fa gina 04-19-2022 influenza virus vacc ine, unspecified formulation Yuri Castano MD Work Phone: [facility] Payers Date Payer Category Payer [facility] [id number] 2022 Unknown [id number] 2021 [place] [id number] 2021 Medicaid [id number] 1991 Unknown [id number] 1991 Unknown [id number] Social History Date Type Detail Facility Start: 08-09-2023 End: 08-28-2023 Tobacco smoking status NHIS Never smoked tobacco [facility] Start: 08-09-2023 End: 12-09-2024 History of Social function [facility] Start: 08-09-2023 End: 12-09-2024 Tobacco use panel [facility] Start: 1990 Sex Assigned At Not on file [facility] Start: 08-28-2023 Tobacco use and exposure Smoke less tobacco non-user [facility] How often do you nee d to have someone help you when you read instructions, pamphlets, or other written material from your doctor or pharmacy [SILS] Never [facility] Within the last year , have you been afraid of your partner or ex-partner? No [facility] Are you now , , , , never or living with a partner? Never [facility] How often to you hav e a drink containing alcohol? Monthly or less [facility] How many standard dr inks containing alcohol do you have on a typical day? 1 or 2 [facility] How hard is it for y ou to pay for the very basics like food, housing, medical care, and heating Patient declined [facility] Do you feel stress - tense, restless, nervous, or anxious, or unable to sleep at night because your mind is troubled all the time - these days [OSQ] To some extent [facility] (I/We) worried wheth er (my/our) food would run out before (I/we) got money to buy more. Never true [facility] History of Present illness Narrative 12-11-2024 Yuri Castano MD - 12/11/2024 3:08 PM Karoline Castano MD - 12/11/2024 3:07 PM Karoline Castano MD - 12/11/2024 3:07 PM Karoline Castano MD - 12/11/2024 2:45 PM EDT Note Date & Type Note Facility 12-11-2024 History of Presen t illness Narrative Associated Problem(s): Class 3 severe obesity due to excess calories without serious comorbidity with body mass index (BMI) of 40.0 to 44.9 in adult Weight loss indicated. Associated Problem(s): Autistic spectrum disorder (CMS/HCC) No behavior problems and monitor. Associated Problem(s): Annual physical exam Due for labs. Discussed proper diet and regular aerobic exercise. Need aerobic exercise 5-6 days a week for 30 minutes at a time. Smaller portions and limit total calories. Colonoscopy after age 45. Tetanus every 10 years. Advised not to smoke. Images from the original note were not included. Subjective Patient ID: Leigh Ann Ventura is a 34 y.o. female who presents for Annual Exam. Presents for annual PE. Patient doing well today. History of Autism and nonverbal. Patient has receptive language and able to understand. No behavior problems and gets along well with others. Goes to workshop during the week. Mild anxiety but controlled with medication. No aggression or outbursts. Weight up 9 pounds in past year. Not active and no regular exercise or activity. Not watching diet or trying to eat healthy. Mom trying to take for walks more often. Due for labs. Review of Systems Respiratory: [...] Assessment/Plan Problem List Items Addressed This Visit Autistic spectrum disorder (CMS/HCC) No behavior problems and monitor. Annual physical exam - Primary Due for labs. Discussed proper diet and regular aerobic exercise. Need aerobic exercise 5-6 days a week for 30 minutes at a time. Smaller portions and limit total calories. Colonoscopy after age 45. Tetanus every 10 years. Advised not to smoke. Relevant Orders Hemoglobin A1c Basic metabolic panel CBC and differential Hepatic function panel Lipid panel TSH documented in this encounter [facility] History of Present illness Narrative 08-28-2023 Yuri Castano MD - 08/28/2023 2:31 PM ESTYuri Castano MD - 08/28/2023 2:15 PM EST [...] Discussed daily Aspirin therapy. Subjective Patient ID: Leigh Ann Ventura is a 33 y.o. female who presents [...] facility documented in this encounter [facility] Evaluation note Note Date & Type Note Facility Evaluation note Diagnosis Annual physical exam- Primary Routine general medical examination at a health care facility Annual physical exam- Primary Routine general medical examination at a health care facility Autistic spectrum disorder (CMS/HCC) Autistic disorder, current or active state Class 3 severe obesity due to excess calories without serious comorbidity with body mass index (BMI) of 40.0 to 44.9 in adult documented in this encounter [facility] Summary Purpose Family History No Family History Records FoundNo Family History Records FoundNo Family History Records Found Advance Directives No Advanced Directives Records FoundNo Advanced Directives Records FoundNo Advanced Directives Records Found Additional Source Comments INFORMATION SOURCE (unrecogn ized section and content) DATE CREATED AUTHOR 11/27/2022 [facility] DATE CREATED AUTHOR AUTHOR'S ORGANIZ ATION 04/26/2023 [facility] DATE CREATED AUTHOR AUTHOR'S ORGANIZ ATION 12/13/2024 [facility] Care Teams (unrecognized sec tion and content) [place] Relationship Specialty Start Date End Date Yuri Castano MD [address] [place] [phone] PCP - General Family Medicine 08/06/23 [place] Relationship Specialty Start Date End Date Yuri Castano MD [address] [place] [phone] PCP - General Family Medicine 08/06/23 [place] Relationship Specialty Start Date End Date Yuri Castano MD [address] [place] [phone] PCP - General Family Medicine 08/06/23 Yuri Castano MD [address] [place] [phone] PCP - [facility] 10/15/23 [place] Relationship Specialty Start Date End Date Yuri Castano MD [address] [place] [phone] PCP - General Family Medicine 08/06/23 Yuri Castano MD [address] [place] [phone] PCP - Yelitza Gibson 10/15/23 Reason for Visit (unrecogniz ed section and content) Reason Comments Annual Exam wellness Reason Comments Annual Exam FOR RECORDS PERTAINING TO PATIENTS WHO ARE [...] BE BASED ON THE PRIMARY CLINICAL RECORDS. [employer] provides no warranty or guarantee of the accuracy or completeness of information in this document.
[2024-12-17 09:06] LABS: Estimated Average Glucose 105 mg/dL; Glycohemoglobin A1C 5.3 % (4.5-6.2)
[2024-12-17 09:12] LABS: Alanine Aminotransferase 27 U/L (14-59); Albumin Globulin Ratio 0.9; Albumin Level 3.5 g/dL (3.4-5.0); Alkaline Phosphatase 127 U/L (46-116); Anion Gap 14.8; Aspartate Amino Transferase 20 U/L (15-37); BUN Creatinine Ratio 16.9; Bilirubin Direct 0.1 mg/dL (0.0-0.2); Bilirubin Total 0.4 mg/dL (0.2-1.0); Calcium 8.8 mg/dL (8.5-10.1); Carbon Dioxide 25.1 mmol/L (21.0-32.0); Chloride 106 mmol/L (98-107); Chol HDL Ratio 3.5; Cholesterol 199 mg/dL (<=200); Estimated GFR (African America >60 (>=60 mL/min/1.73m^2); Estimated GFR (Non-African Ame >60 (>=60 mL/min/1.73m^2); Globulin 3.7 g/dL; Glucose 96 mg/dL (74-106); HDL Cholesterol 57 mg/dL (40-60); LDL Cholesterol Calculated 124.6 mg/dL; Potassium 3.9 mmol/L (3.5-5.1); Sodium 142 mmol/L (136-145); Thyroid Stimulating Hormone 1.644 uIU/mL (0.358-3.740); Total Protein 7.2 g/dL (6.4-8.2); Triglycerides 87 mg/dL (<=150); VLDL CHOLESTEROL 17.4 mg/dL
== END 2024-12-17 08:00 | disposition home or self-care (01) ==
LOC: LAB 07:59
PROVIDERS: PCP Family Medicine; Visit Provider Family Medicine
DX: Z00.00 Encounter for general adult medical examination without abnormal findings (principal)
CPT/HCPCS: 36415; 80048; 80061; 80076; 83036; 84443; 85025